=== PATIENT | female | born 1975 | race Caucasian/White ===

== ENCOUNTER 2017-03-13 15:30 | Emergency (ER) | payer OTHER | END 2017-03-13 17:35 | disposition left against medical advice (07) | LOC: JP.ED 15:30 | DX: Z53.21 Procedure and treatment not carried out due to patient leaving prior to being seen by health care provider (principal) ==

== ENCOUNTER 2017-06-27 20:03 | Emergency (ER) | payer OTHER ==
[2017-06-27 20:30] VITALS: BP 139/85
[2017-06-27] MEDS ORDERED: Sodium Chloride 0.9% 10 ML Syringe FLUSH PRN (20:41)
--- NOTE | 2017-06-27 22:56 | EDM.PDOC ---
ED HPI GENERAL MEDICAL PROBLEM - General Chief Complaint: General Stated Complaint: shaking, SWEATING, FELL A FEW DAYS AGO Time Seen by Provider: 06/27/17 20:38 Source of Information: Reports: Family History Limitations: Reports: Physical Impairment - History of Present Illness INITIAL COMMENTS - FREE TEXT/NARRATIVE: This lady was brought in by her . He complains of weight loss and mental status changes. He thinks this is probably due to hypokalemia. This patient's had some very significant problems over the past year and had a big workup through the [facility]. It seems to have happened after the of her father. She had a lot of depression loss of vision and pain in various areas. Nothing was ever found to be wrong. She does have a history of hypokalemia. Her potassium is been down as low as 1.8 recently. Previously she had gotten down below 100 pounds and last week she was up to 113-114 pounds. She had been doing well. 2 nights ago she fell and may have hit her head against some furniture. They have a carpeted floor but it's over the concrete slab. There was no loss of consciousness. Her just sort of found her lying on the floor next to this chair today she fell asleep in a hammock at about 5:30 or 6 PM. He noted that she was sweating all over and shaking. She seemed to be disoriented to time. 2 nights ago she vomited once. He said there is no chance of . Dr. Marte's note from December 09, 2016 was reviewed. - Related Data Allergies Allergy/AdvReac Type Severity Reaction Status Date / Time morphine Allergy Anaphylactic Uncoded 08/24/16 05:27 Shock Home Meds: Home Meds ALPRAZolam [Alprazolam] 0.5 mg PO Q8H PRN 08/24/16 [History] Cholecalciferol (Vitamin D3) [Vitamin D3] 2,000 units PO DAILY 08/24/16 [History ] DULoxetine [Cymbalta] 30 mg PO DAILY 08/24/16 [History] Hydrocodone/Acetaminophen [Hydrocodon-Acetaminophen 5-325] 1 - 2 each PO Q4H PRN #14 tablet 08/24/16 [Rx] Potassium Chloride [Klor-Con M20] 20 meq PO DAILY 08/24/16 [History] Past Medical History HEENT History: Reports: Impaired Vision Genitourinary History: Reports: None 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: Musculoskeletal History: Reports: Fracture Psychiatric History: Reports: Anxiety, Eating Disorders Hematologic History: Reports: Iron Deficiency, Other (See Below) Other Hematologic History: low potassium - Infectious Disease History Infectious Disease History: Reports: Chicken Pox - Past Surgical History HEENT Surgical History: Reports: Oral Surgery, Tonsillectomy Female Surgical History: Reports: Section Social & Family History - Tobacco Use Smoking Status *Q: Heavy Tobacco Smoker Years of Tobacco use: 20 Packs/Tins Daily: 1 - Caffeine Use Caffeine Use: Reports: None - Alcohol Use Days Per Week of Alcohol Use: 1 Number of Drinks Per Day: 1 Total Drinks Per Week: 1 - Recreational Drug Use Recreational Drug Use: No ED ROS GENERAL - Review of Systems Review Of Systems: ROS reveals no pertinent complaints other than HPI. (History of present illness is limited by the patient's mental status) ED EXAM, GENERAL - Physical Exam Exam: See Below Exam Limited By: Altered Mental Status General Appearance: Alert (She seems alert but chronically ill for her age. She' s not in any distress), No Apparent Distress Eye Exam: Bilateral Eye: EOMI, PERRL Nose: Normal Inspection Throat/Mouth: Normal Inspection, Normal Oropharynx Head: Atraumatic Neck: Normal Inspection Respiratory/Chest: Lungs Clear Cardiovascular: Regular Rate, Rhythm GI/Abdominal: Soft, Non-Tender Extremities: Normal Inspection Neurological: Alert (She seems to be alert but slowly responsive as if she is sort of in a dream state. She is oriented to person and she knows she is at the hospital in [place]. When asked about the date she said it was 2000. She was asked more specifically such as what season it was initially she said it was winter and when I question her further about what season it might be she repeatedly said 2000 she also made other statements to her that indicated disorientation.) Psychiatric: Flat Affect Skin Exam: Warm, Dry Course - Vital Signs Last Recorded V/S: Last Vital Signs Temp 36.4 C 06/27/17 20:29 Pulse 93 06/27/17 20:29 Resp 16 06/27/17 20:29 BP 139/85 06/27/17 20:29 Pulse Ox 98 06/27/17 20:29 - Orders/Labs/Meds Orders: Active Orders 24 hr Category Date Time Status Head wo Cont [CT] Stat Exams 06/27/17 21:46 Taken Saline Lock Insert [OM.PC] Urgent Oth 06/27/17 20:41 Ordered Labs: Laboratory Tests 06/27/17 06/27/17 06/27/17 Range/Units 20:52 20:52 22:07 WBC 7.8 (4.5-11.0) K/uL RBC 5.44 (3.30-5.50) M/uL Hgb 11.3 L (12.0-15.0) g/dL Hct 33.7 L (36.0-48.0) % MCV 62 L (80-98) fL MCH 21 L (27-31) pg MCHC 34 (32-36) % Plt Count 265 (150-400) K/uL Neut % (Auto) 54 (36-66) % Lymph % (Auto) 33 (24-44) % [place] % (Auto) 13 H (2-6) % Eos % (Auto) 0 L (2-4) % Baso % (Auto) 1 (0-1) % Sodium 141 (140-148) mmol/L Potassium 4.2 (3.6-5.2) mmol/L Chloride 105 (100-108) mmol/L Carbon Dioxide 22 (21-32) mmol/L Anion Gap 14.1 H (5.0-14.0) mmol/L BUN 9 (7-18) mg/dL Creatinine 0.7 (0.6-1.0) mg/dL Est Cr Clr Drug Dosing 85.58 mL/min Estimated GFR (MDRD) > 60 (>60) Glucose 115 H (74-106) mg/dL Calcium 8.5 (8.5-10.1) mg/dL Total Bilirubin 0.5 (0.2-1.0) mg/dL AST 50 H (15-37) U/L ALT 40 (12-78) U/L Alkaline Phosphatase 103 (46-116) U/L Total Protein 7.4 (6.4-8.2) g/dL Albumin 3.4 (3.4-5.0) g/dL Globulin 4.0 H (2.3-3.5) g/dL Albumin/Globulin Ratio 0.9 L (1.2-2.2) Urine Color Yellow Urine Appearance Clear Urine pH 8.0 (4.5-8.0) Ur Specific [place] 1.015 (1.008-1.030) Urine Protein Negative (NEGATIVE) mg/dL Urine Glucose (UA) Normal (NEGATIVE) mg/dL Urine Ketones Negative (NEGATIVE) mg/dL Urine Occult Blood Negative (NEGATIVE) Urine Nitrite Negative (NEGATIVE) Urine Bilirubin Negative (NEGATIVE) Urine Urobilinogen Normal (NORMAL) mg/dL Ur Leukocyte Esterase Negative (NEGATIVE) Urine RBC 0-5 (0-5) Urine WBC 0-5 (0-5) Ur Epithelial Cells Moderate Amorphous Sediment Not seen Urine Bacteria Moderate Urine Mucus Few Meds: Medications Discontinued Medications Generic Name Dose Route Start Last Admin Trade Name Freq PRN Reason Stop Dose Admin Sodium Chloride 10 ml 06/27/17 20:41 06/27/17 22:02 Saline Flush FLUSH 10 ml ASDIRECTED PRN Administration Keep Vein Open - Radiology Interpretation Free Text/Narrative:: Head CT shows no acute abnormalities - Re-Assessments/Exams Free Text/Narrative Re-Assessment/Exam: 06/28/17 07:00 I explained to her that I don't see any kind of lab abnormalities that would explain the sudden mental status changes. She actually seems like she is in a delirium. I recommended that we transfer her to a facility that had a neurologist and I suggested one of the [facility]. The said they have been down there and then to a complete workup and he thought the best thing was just for her to see her psychologist in a few days. Since this is just a worsening of a chronic problem I felt that her husbands plans are reasonable. He was told that he can return to the ER at any time if needed Departure - Departure Time of Disposition: 22:53 Disposition: Home, Self-Care 01 Condition: Fair Clinical Impression: Mental status change - Discharge Information Instructions: Confusion Referrals: PCP,None [Primary Care Provider] - Forms: ED Department Discharge Additional Instructions: No gross laboratory abnormalities were found. The CT of her head was also normal. None of the tests we did today explain the recent changes in her mental status. Transfer to another hospital where a neurologist could evaluate her would be appropriate however since this is just a worsening of a long-standing problem I don't object to you taking her home and her seeing her primary care provider in a few days. If there are any problems you're welcome to return to the ER at any time. - My Orders Last 24 Hours: My Active Orders 06/27/17 20:41 Saline Lock Insert [OM.PC] Urgent 06/27/17 21:46 Head wo Cont [CT] Stat - Assessment/Plan Last 24 Hours: My Active Orders 06/27/17 20:41 Saline Lock Insert [OM.PC] Urgent 06/27/17 21:46 Head wo Cont [CT] Stat
== END 2017-06-27 23:03 | disposition home or self-care (01) ==
LOC: JP.ED 20:03
DX: R41.82 Altered mental status, unspecified (principal); H54.7 Unspecified visual loss; F41.9 Anxiety disorder, unspecified; Z98.890 Other specified postprocedural states; F17.210 Nicotine dependence, cigarettes, uncomplicated; Z79.899 Other long term (current) drug therapy; Z88.5 Allergy status to narcotic agent
CPT/HCPCS: 36415; 70450; 80053; 81001; 85025; 99285; J7050

== ENCOUNTER 2019-08-05 20:04 | Inpatient (IN) | payer OTHER ==
[2019-08-05] MEDS ORDERED: fentaNYL 100 MCG/2 ML SDV NASBOTH ONE (20:15)
[2019-08-05] MEDS ORDERED: fentaNYL 100 MCG/2 ML SDV ONE (20:17)
[2019-08-05] MEDS ORDERED: fentaNYL 100 MCG/2 ML SDV IVPUSH ONE ×2 (20:17→20:37)
--- NOTE | 2019-08-05 20:20 | EDM.PDOC ---
ED HPI GENERAL MEDICAL PROBLEM - General Chief Complaint: Lower Extremity Injury/Pain Stated Complaint: ANKLE INJURY Time Seen by Provider: 08/05/19 20:11 Source of Information: Reports: Patient, Family, RN Notes Reviewed History Limitations: Reports: No Limitations - History of Present Illness INITIAL COMMENTS - FREE TEXT/NARRATIVE: 44-year-old female presents emergency department today with a deformity in her left ankle unfortunately she tripped at home ended up twisting her ankle now is unable to walk has obvious deformity and is in severe pain Left Lower Ankle Pain Score (Numeric/FACES): 10 - Related Data Allergies Allergy/AdvReac Type Severity Reaction Status Date / Time morphine Allergy Anaphylactic Uncoded 08/24/16 05:27 Shock Home Meds: Home Meds ALPRAZolam [Alprazolam] 0.5 mg PO Q8H PRN 08/24/16 [History] Cholecalciferol (Vitamin D3) [Vitamin D3] 2,000 units PO DAILY 08/24/16 [History ] DULoxetine [Cymbalta] 30 mg PO DAILY 08/24/16 [History] Hydrocodone/Acetaminophen [Hydrocodon-Acetaminophen 5-325] 1 - 2 each PO Q4H PRN #14 tablet 08/24/16 [Rx] Potassium Chloride [Klor-Con M20] 20 meq PO DAILY 08/24/16 [History] Past Medical History HEENT History: Reports: Impaired Vision 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: Musculoskeletal History: Reports: Fracture Psychiatric History: Reports: Anxiety, Eating Disorders Hematologic History: Reports: Iron Deficiency, Other (See Below) Other Hematologic History: low potassium - Infectious Disease History Infectious Disease History: Reports: Chicken Pox - Past Surgical History HEENT Surgical History: Reports: Oral Surgery, Tonsillectomy Female Surgical History: Reports: Section Social & Family History - Caffeine Use Caffeine Use: Reports: None Review of Systems - Review of Systems Review Of Systems: See Below Musculoskeletal: Reports: Joint Pain (Left ankle pain) Skin: Reports: Bruising Neurological: Reports: Numbness, Tingling ED EXAM, GENERAL - Physical Exam Exam: See Below Free Text/Narrative:: Examination left ankle there is obvious deformity she does have edema there is bruising around the left ankle pedal pulses +1 sensation is intact Limited range of motion of the digits secondary to pain ED TRAUMA EXTREMITY PROCEDURES - Joint Reduction Site: Other (Left ankle) Sedation: Conscious Sedation Pre-Procedure NV Status: Normal Post-Procedure NV Status: Normal Technique: Traction/Counter Traction Number of Attempts: 1 Post-Reduction Imaging: Acceptably Reduced Joint Reduction Complications: No Joint Reduction Complication Description: Fluoroscopy anesthesia by Watson Rasmussen see his note for details Course - Vital Signs Last Recorded V/S: Last Vital Signs Temp 96.2 F 08/05/19 20:14 Pulse 119 H 08/05/19 20:14 Resp 18 08/05/19 20:14 BP 123/87 08/05/19 20:14 Pulse Ox 99 08/05/19 20:14 - Orders/Labs/Meds Orders: Active Orders 24 hr Category Date Time Status Fluoro Up To 1Hr [CR] Stat Exams 08/05/19 21:02 Ordered Sodium Chloride 0.9% [Normal Saline] 1,000 ml Med 08/05/19 20:30 Active IV ASDIRECTED Medication Orders Sodium Chloride (Normal Saline) 1,000 mls @ 125 mls/hr IV ASDIRECTED VIVIENNE Last Admin: 08/05/19 20:40 Dose: 125 mls/hr Meds: Medications Generic Name Dose Route Start Last Admin Trade Name Freq PRN Reason Stop Dose Admin Sodium Chloride 1,000 mls @ 125 mls/hr 08/05/19 20:30 08/05/19 20:40 Normal Saline IV 125 mls/hr ASDIRECTED VIVIENNE Administration Discontinued Medications Generic Name Dose Route Start Last Admin Trade Name Freq PRN Reason Stop Dose Admin Fentanyl 50 mcg 08/05/19 20:15 Sublimaze NASBOTH 08/05/19 20:16 ONETIME ONE Fentanyl 50 mcg 08/05/19 20:17 08/05/19 20:19 Sublimaze IVPUSH 08/05/19 20:18 50 mcg ONETIME ONE Administration Fentanyl Confirm 08/05/19 20:17 08/05/19 20:21 Sublimaze Administered 08/05/19 20:18 Not Given Dose 100 mcg .ROUTE .STK-MED ONE Fentanyl 50 mcg 08/05/19 20:37 08/05/19 20:45 Sublimaze IVPUSH 08/05/19 20:38 50 mcg ONETIME ONE Administration - Re-Assessments/Exams Free Text/Narrative Re-Assessment/Exam: 08/05/19 20:50 Called discussed case with Dr[address] Aguilar orthopedic surgeon at 2039 who reviewed the films recommend reduction posterior splint admission plan for surgical intervention in the morning Departure - Departure Time of Disposition: 21:24 Disposition: Admitted As Inpatient 66 Condition: Fair Clinical Impression: Ankle fracture Ankle fracture Qualifiers: Encounter type: initial encounter Fracture type: closed Laterality: left Qualified Code(s): S82.892A - Other fracture of left lower leg, initial encounter for closed fracture - Discharge Information Referrals: [facility] UI SOFTWARE DEVELOPER [Primary Care Provider] - Forms: ED Department Discharge - My Orders Last 24 Hours: My Active Orders 08/05/19 20:30 Sodium Chloride 0.9% [Normal Saline] 1,000 ml IV ASDIRECTED 08/05/19 21:02 Fluoro Up To 1Hr [CR] Stat - Assessment/Plan Last 24 Hours: My Active Orders 08/05/19 20:30 Sodium Chloride 0.9% [Normal Saline] 1,000 ml IV ASDIRECTED 08/05/19 21:02 Fluoro Up To 1Hr [CR] Stat Plan: Assessment Acuity = acute Site and laterality = left ankle fracture with dose location status post reduction Etiology = secondary to trauma Manifestations = pain Location of injury = Home Lab values = initial x-rays describe fracture above reduction done under fluoroscopy Plan Plan to admit the patient to Dr. Aguilar's service This note was dictated using [employer] voice recognition software please call with any questions on syntax or grammar.
[2019-08-05] MEDS ORDERED: Sodium Chloride 0.9% 1,000 ML IV SCH (20:30)
--- NOTE | 2019-08-05 20:50 | CRLCR ---
INDICATION: Twisting injury. Pain. TECHNIQUE: Two portable views of the left ankle. FINDINGS: Fracture dislocation of left ankle. Specifically there is an acute complete angulated overriding fracture of the distal fibula, acute complete displaced transversely oriented fracture of the medial malleolus. Fracture of the posterior malleolus. Anteromedial disruption of the tibiotalar joint space with significant soft tissue swelling. IMPRESSION: Complex trimalleolar fracture dislocation of the left ankle. Orthopedic consultation is warranted. Dictated by Jarrett Sanders MD @ Aug 05 2019 8:48PM Signed by Dr. Jarrett Sanders @ Aug 05 2019 8:49PM
[2019-08-05] MEDS ORDERED: Propofol 200 MG/20 ML SDV ONE (21:24)
[2019-08-05] MEDS ORDERED: Acetaminophen 325 MG Tab PO PRN (22:40)
[2019-08-05] MEDS ORDERED: LORazepam 2 MG/ML SDV IV PRN (22:40)
[2019-08-05] MEDS ORDERED: Ondansetron 4 MG Tab.DIS PO PRN (22:40)
[2019-08-05] MEDS ORDERED: Albuterol 0.083% 2.5 MG/3 ML Neb Soln NEB PRN (22:40)
[2019-08-05] MEDS ORDERED: Ondansetron 4 MG/2 ML SDV IV PRN (22:40)
--- NOTE | 2019-08-05 22:41 | PCM.HP.2 ---
H&P History of Present Illness - General Date of Service: 08/05/19 Admit Problem/Dx: Admission Diagnosis/Problem Admission Diagnosis/Problem Ankle fracture Source of Information: Patient History Limitations: Reports: Intoxication - History of Present Illness Initial Comments - Free Text/Narative: chief complaint: left fracture ankle This is 44 year old female who is pleasantly intoxicated, reports has been sober for 13 months but today "relapsed" due to family stressors. She ate supper about 6:30pm, then drank unknown amount of alcohol, at least 4 or 5 drinks or more, not sure. She then tripped over a humidifier and had immediate pain and deformity of the left ankle. Her who was also intoxicated help assist her to the vehicle. The 18 year old daughter transported to ER for care. In ER, Radiologist report: complex trimalleolar fracture dislocation of the left ankle. Dr. Sanderson reduced left ankle fracture/dislocation under fluoroscopy. Consult to Dr. Aguilar, Orthopedic Surgeon, with planned surgery in am to repair left ankle fracture. Onset of Symptoms: Reports: Sudden Duration of Symptoms: Reports: Hour(s): Location: Reports: Lower Extremity, Left Quality: Reports: Sharp, Stabbing, Throbbing Severity: Severe Improves with: Reports: Immobilization Worsens with: Reports: Movement Context: Reports: Trauma (fall at home) Associated Symptoms: Reports: Other (intoxication) Left Lower Ankle Pain Score (Numeric/FACES): 10 - Related Data Allergies/Adverse Reactions: Allergies Allergy/AdvReac Type Severity Reaction Status Date / Time morphine Allergy Anaphylactic Uncoded 08/24/16 05:27 Shock Home Medications: Home Meds DULoxetine [Cymbalta] 60 mg PO ACBREAKFAST 08/24/16 [History] DULoxetine [Cymbalta] 30 mg PO BEDTIME 08/05/19 [History] Gabapentin [Neurontin] 600 mg PO TID 08/05/19 [History] Methocarbamol [Robaxin] 500 mg PO TID 08/05/19 [History] lamoTRIgine [Lamotrigine] 25 mg PO DAILY 08/05/19 [History] traZODone 200 mg PO BEDTIME 08/05/19 [History] Past Medical History HEENT History: Reports: Impaired Vision 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: Musculoskeletal History: Reports: Fracture Psychiatric History: Reports: Anxiety, Eating Disorders Hematologic History: Reports: Iron Deficiency, Other (See Below) Other Hematologic History: low potassium - Infectious Disease History Infectious Disease History: Reports: Chicken Pox - Past Surgical History HEENT Surgical History: Reports: Oral Surgery, Tonsillectomy Female Surgical History: Reports: Section Social & Family History - Tobacco Use Smoking Status *Q: Heavy Tobacco Smoker Years of Tobacco use: 20 Packs/Tins Daily: 1 - Caffeine Use Caffeine Use: Reports: None - Living Situation & Occupation Living situation: Reports: Occupation: Employed (lives with and Daughter in [place], [place]. 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 has two daughters age 20 yrs and 18 yrs.) H&P Review of Systems - Review of Systems: Review Of Systems: See Below General: Reports: Other (left ankle pain and intoxication) HEENT: Reports: Glasses Pulmonary: Reports: Other (smokes one pack of cigarettes per day) Cardiovascular: Reports: No Symptoms Gastrointestinal: Reports: No Symptoms Genitourinary: Reports: No Symptoms, Other (report has IUD in place) Musculoskeletal: Reports: Joint Pain (left ankle) Skin: Reports: No Symptoms Psychiatric: Reports: No Symptoms Neurological: Reports: No Symptoms Hematologic/Lymphatic: Reports: No Symptoms Immunologic: Reports: No Symptoms Exam - Exam Exam: See Below - Vital Signs Vital Signs: Last Vital Signs Temp 35.7 C 08/05/19 20:14 Pulse 119 H 08/05/19 20:14 Resp 18 08/05/19 20:14 BP 123/87 08/05/19 20:14 Pulse Ox 99 08/05/19 20:14 Weight: 63.503 kg - Exam General: Alert, Oriented, Cooperative, Sedated HEENT: PERRLA, Conjunctiva Clear, EACs Clear, EOMI, Hearing Intact, Mucosa Moist & [place], Nares Patent Neck: Supple, Trachea Midline Lungs: Clear to Auscultation, Normal Respiratory Effort Cardiovascular: Regular Rate, Regular Rhythm, Normal S1, Normal S2 GI/Abdominal Exam: Normal Bowel Sounds, Soft, Non-Tender, No Organomegaly (Female) Exam: Deferred Rectal (Female) Exam: Deferred Back Exam: Normal Inspection, Full Range of Motion Extremities: Other (left lower leg in splint. toe with +CMS) Peripheral Pulses: 2+: Radial (R), Femoral (L), Dorsalis Pedis (L) Skin: Warm, Dry, Intact Neurological: Normal Speech, Normal Tone Neuro Extensive - Mental Status: Alert, Oriented x3, Normal Mood/Affect, Normal Cognition Psychiatric: Alert, Normal Affect, Normal Mood - Problem List (1) Ankle fracture SNOMED Code(s): 42296602 ICD Code: S82.899A - OTH FRACTURE OF UNSP LOWER LEG, INIT FOR CLOS FX Status: Acute Priority: High Current Visit: Yes Qualifiers: Encounter type: initial encounter Fracture type: closed Laterality: left Qualified Code(s): S82.892A - Other fracture of left lower leg, initial encounter for closed fracture (2) Alcohol abuse, episodic Status: Acute Priority: High Current Visit: Yes (3) Tobacco dependence due to cigarettes SNOMED Code(s): 82090092879631647 ICD Code: F17.210 - NICOTINE DEPENDENCE, CIGARETTES, UNCOMPLICATED Status: Acute Priority: High Current Visit: Yes Problem List Initiated/Reviewed/Updated: Yes Orders Last 24hrs: Active Orders 24 hr Category Date Time Status Patient Status Manage Transfer [TRANSFER] Routine ADT 08/05/19 22:21 Ordered Fluoro Up To 1Hr [CR] Stat Exams 08/05/19 20:18 Taken Sodium Chloride 0.9% [Normal Saline] 1,000 ml Med 08/05/19 20:30 Active IV ASDIRECTED Resuscitation Status Routine Resus Stat 08/05/19 22:23 Ordered Medication Orders Sodium Chloride (Normal Saline) 1,000 mls @ 125 mls/hr IV ASDIRECTED VIVIENNE Last Admin: 08/05/19 20:40 Dose: 125 mls/hr Assessment/Plan Comment:: chief complaint: left fracture ankle This is 44 year old female who is pleasantly intoxicated, reports has been sober for 13 months but today "relapsed" due to family stressors. She ate supper about 6:30pm, then drank unknown amount of alcohol, at least 4 or 5 drinks or more, not sure. She then tripped over a humidifier and had immediate pain and deformity of the left ankle. Her who was also intoxicated help assist her to the vehicle. The 18 year old daughter transported to ER for care. In ER, Radiologist report: complex trimalleolar fracture dislocation of the left ankle. Officer reduced left ankle fracture/dislocation under fluoroscopy. Consult to Dr. Aguilar, Orthopedic Surgeon, with planned surgery in am to repair left ankle fracture. LEFT ANKLE FRACTURE WITH POST REDUCTION -Iv fluids Normal Saline at 125ml/hr -pain medications ordered. -NPO after midnight for surgery in am. -labs pending: CBC, BMP,ETOH level. Alcohol abuse - relapsed today -Chemical Dependency counselor - meets weekly Tobacco use - reports smokes one pack or more of cigarettes -Nicotine patch 21 mg daily, start tonight Maintenance issues -Orders home meds: on hold -Nutrition: NPO then per post surgery orders. -Kraus catheter not indicated at this time -DVT:hold, surgery in am -GI Prophalaxis; Protonix 40mg daily -referral Spiritual CODE STATUS: Full Admission status: Admit to hospital Admission justification. This patient will be admitted for inpatient services and is medically appropriate meeting medical necessity for inpatient admission as outlined in my documentation. I reasonably expect the patient will require inpatient services that span. Time over 2 midnights. I reasonably expect this patient to be discharged or transferred within 96 hours after admission to the critical access hospital. Disposition: home Primary care provider: Kishor Meredith [facility] Hospitalist: Dr. Baxter Surgeon: Dr. Aguilar, Orthopedic - Mortality Measure Prognosis:: Good
[2019-08-06] MEDS: oxyCODONE 5 MG Tab PO PRN ×4 (00:24→23:44)
[2019-08-06] MEDS: Nicotine 21 MG/24 Hr Patch TRDERM SCH ×2 (00:25→09:52)
[2019-08-06] MEDS ORDERED: Gabapentin 300 MG Cap PO ONE (00:27)
[2019-08-06] MEDS ORDERED: DULoxetine 30 MG Cap PO ONE (00:27)
[2019-08-06] MEDS: Pantoprazole 40 MG Vial IVPUSH SCH ×2 (00:27→09:52)
[2019-08-06] MEDS: HYDROmorphone 1 MG/ML Syringe IVPUSH PRN ×5 (02:10→16:26)
[2019-08-06] MEDS: Sodium Chloride 0.9% 1,000 ML IV SCH ×2 (03:33→23:43)
[2019-08-06] MEDS ORDERED: Bupivacaine 0.5% 30 ML SDV ONE (07:09)
[2019-08-06] MEDS: lamoTRIgine 25 MG Tab PO SCH (09:52)
[2019-08-06] MEDS ORDERED: FLU Vacc QS2019-20(6MOS+)/PF 60 MCG/0.5 ML SYRINGE IM ONE (10:00)
[2019-08-06] MEDS ORDERED: ceFAZolin 2 GM in Sodium Chloride 0.9% 50 ML IV ONE ×2 (10:00→16:45)
[2019-08-06] MEDS ORDERED: LORazepam 1 MG Tab PO ONE (10:59)
--- NOTE | 2019-08-06 12:48 | PCM.PN ---
- General Info Date of Service: 08/06/19 Subjective Update: No acute events overnight. Pain moderately well controlled. Patient is anxious. No complaints of shortness of breath or abdominal pain or nausea. Surgery planned later in the day. Functional Status: Reports: Pain Controlled - Review of Systems Musculoskeletal: Reports: Joint Pain (left ankle) - Patient Data Vitals - Most Recent: Last Vital Signs Temp 37.1 C 08/06/19 12:01 Pulse 119 H 08/06/19 12:01 Resp 16 08/06/19 12:01 BP 138/77 08/06/19 12:01 Pulse Ox 94 L 08/06/19 12:01 Weight - Most Recent: 65.459 kg I&O - Last 24 Hours: Intake & Output 08/05/19 08/06/19 08/06/19 22:59 06:59 14:59 Intake Total 1462 Balance 1462 Lab Results Last 24 Hours: Laboratory Results - last 24 hr 08/05/19 08/05/19 08/05/19 Range/Units 22:55 22:55 22:55 WBC 13.4 H (4.5-11.0) K/uL RBC 5.71 H (3.30-5.50) M/uL Hgb 12.4 (12.0-15.0) g/dL Hct 37.8 (36.0-48.0) % MCV 66 L (80-98) fL MCH 22 L (27-31) pg MCHC 33 (32-36) % Plt Count 292 (150-400) K/uL Neut % (Auto) 80 H (36-66) % Lymph % (Auto) 14 L (24-44) % Brooks % (Auto) 5 (2-6) % Eos % (Auto) 0 L (2-4) % Baso % (Auto) 0 (0-1) % Sodium 139 L (140-148) mmol/L Potassium 3.5 L (3.6-5.2) mmol/L Chloride 100 (100-108) mmol/L Carbon Dioxide 23 (21-32) mmol/L Anion Gap 19.5 H (5.0-14.0) mmol/L BUN 11 (7-18) mg/dL Creatinine 0.6 (0.6-1.0) mg/dL Est Cr Clr Drug Dosing 104.40 mL/min Estimated GFR (MDRD) > 60 (>60) Glucose 123 H (74-106) mg/dL Calcium 8.0 L (8.5-10.1) mg/dL Total Bilirubin 0.6 (0.2-1.0) mg/dL AST 35 (15-37) U/L ALT 30 (12-78) U/L Alkaline Phosphatase 80 (46-116) U/L Total Protein 6.9 (6.4-8.2) g/dL Albumin 4.0 (3.4-5.0) g/dL Globulin 2.9 (2.3-3.5) g/dL Albumin/Globulin Ratio 1.4 (1.2-2.2) Ethyl Alcohol 294 mg/dL Med Orders - Current: Current Medications Acetaminophen (Tylenol) 650 mg PO Q4H PRN PRN Reason: Pain (Mild 1-3)/fever Albuterol (Proventil Neb Soln) 2.5 mg NEB Q4H PRN PRN Reason: Shortness Of Breath/wheezing Hydromorphone HCl (Dilaudid) 1 mg IVPUSH Q2H PRN PRN Reason: Pain Last Admin: 08/06/19 10:38 Dose: 1 mg Sodium Chloride (Normal Saline) 1,000 mls @ 125 mls/hr IV ASDIRECTED [facility] Last Admin: 08/06/19 03:33 Dose: 125 mls/hr Lamotrigine (Lamotrigine) 25 mg PO DAILY [facility] Last Admin: 08/06/19 09:52 Dose: 25 mg Lorazepam (Ativan) 1 mg IV Q6H PRN PRN Reason: Nausea/Vomiting Nicotine (Habitrol) 21 mg TRDERM DAILY [facility] Last Admin: 08/06/19 09:52 Dose: 21 mg Ondansetron HCl (Zofran Odt) 4 mg PO Q6H PRN PRN Reason: Nausea able to take PO Ondansetron HCl (Zofran) 4 mg IV Q4H PRN PRN Reason: Nausea/Vomiting Oxycodone HCl (Oxycodone) 5 mg PO Q4H PRN PRN Reason: Pain (moderate 4-6) Last Admin: 08/06/19 05:31 Dose: 5 mg Pantoprazole Sodium (Protonix Iv) 40 mg IVPUSH DAILY [facility] Last Admin: 08/06/19 09:52 Dose: 40 mg Discontinued Medications Bupivacaine HCl (Marcaine 0.5%) Confirm Administered Dose 30 ml .ROUTE .STK-MED ONE Stop: 08/06/19 07:10 Duloxetine HCl (Cymbalta) 30 mg PO ONETIME ONE Stop: 08/06/19 00:28 Last Admin: 08/06/19 00:41 Dose: 30 mg Fentanyl (Sublimaze) 50 mcg NASBOTH ONETIME ONE Stop: 08/05/19 20:16 Last Admin: 08/06/19 01:05 Dose: Not Given Fentanyl (Sublimaze) 50 mcg IVPUSH ONETIME ONE Stop: 08/05/19 20:18 Last Admin: 08/05/19 20:19 Dose: 50 mcg Fentanyl (Sublimaze) Confirm Administered Dose 100 mcg .ROUTE .STK-MED ONE Stop: 08/05/19 20:18 Last Admin: 08/05/19 20:21 Dose: Not Given Fentanyl (Sublimaze) 50 mcg IVPUSH ONETIME ONE Stop: 08/05/19 20:38 Last Admin: 08/05/19 20:45 Dose: 50 mcg Gabapentin (Neurontin) 600 mg PO ONETIME ONE Stop: 08/06/19 00:28 Last Admin: 08/06/19 00:41 Dose: 600 mg Sodium Chloride (Normal Saline) 1,000 mls @ 125 mls/hr IV ASDIRECTED [facility] Last Admin: 08/05/19 20:40 Dose: 125 mls/hr Cefazolin Sodium 2 gm/ Sodium (Chloride) 50 mls @ 100 mls/hr IV ONCALL ONE Stop: 08/06/19 10:29 Last Admin: 08/06/19 09:52 Dose: 100 mls/hr Influenza Virus Vaccine (Pharmacy To Dose - Influenza Vaccine) 1 each IM ONETIME ONE Stop: 08/06/19 10:01 Influenza Virus Vaccine (Fluzone Quad [id number] Syringe) 60 mcg IM .ONCE ONE Stop: 08/06/19 10:01 Last Admin: 08/06/19 10:00 Dose: 60 mcg Lorazepam (Ativan) 1 mg PO ONETIME ONE Stop: 08/06/19 11:00 Last Admin: 08/06/19 11:03 Dose: 1 mg Propofol (Diprivan 20 Ml) Confirm Administered Dose 200 mg .ROUTE .STK-MED ONE Stop: 08/05/19 21:25 - Exam Quality Assessment: No: Supplemental Oxygen General: Alert, Oriented, Cooperative, No Acute Distress Lungs: Normal Respiratory Effort GI/Abdominal Exam: Soft, No Distention Extremities: No Pedal Edema, Other (left ankle with splint and secured with KIA wrap ) Skin: Warm, Dry Psy/Mental Status: Alert, Anxious - Problem List Review Problem List Initiated/Reviewed/Updated: Yes - Plan Plan:: ASSESSMENT AND PLAN - Complicated trimalleolar fracture of the left ankle - status post reduction and splinting in the emergency room. Pain moderately well controlled. Surgical intervention planned today. -Iv fluids Normal Saline at 125ml/hr -pain control -NPO status -Surgical intervention later today with Dr. Aguilar Alcohol abuse - recent heavy use after a period of sobriety. No strong evidence to support alcohol withdrawal at this time. -CIWAA Tobacco dependence - reports smoking one pack or more of cigarettes per day. -Nicotine patch 21 mg daily Maintenance issues -Nutrition - NPO -Kraus catheter - not indicated at this time -DVT - hold, surgery in am -GI Prophalaxis; Protonix 40mg daily Disposition - I would anticipate discharge home after the surgery Primary care provider: [place], [facility] Osbaldo Baxter M.D.
[2019-08-06] MEDS ORDERED: fentaNYL 250 MCG/5 ML SDV ONE ×2 (16:35→16:59)
[2019-08-06] MEDS ORDERED: Succinylcholine 200 MG/10 ML MDV ONE (16:36)
[2019-08-06] MEDS ORDERED: Glycopyrrolate 0.2 MG/ML 5 ML MDV ONE (16:36)
[2019-08-06] MEDS ORDERED: Neostigmine Methylsulfate 1 MG/ML 5 ML Syringe ONE (16:36)
[2019-08-06] MEDS ORDERED: Ondansetron 4 MG/2 ML SDV ONE (16:36)
[2019-08-06] MEDS ORDERED: Dexamethasone 4 MG/ML SDV ONE (16:36)
[2019-08-06] MEDS ORDERED: Rocuronium 50 MG/5 ML Vial ONE (16:36)
[2019-08-06] MEDS ORDERED: Propofol 200 MG/20 ML SDV ONE (16:36)
[2019-08-06] MEDS ORDERED: Labetalol 20 MG/4 ML Syringe ONE (17:10)
[2019-08-06] MEDS ORDERED: Lactated Ringers 1,000 ML ONE (17:22)
[2019-08-06] MEDS ORDERED: DULoxetine 30 MG Cap PO SCH (21:00)
[2019-08-06] MEDS: Methocarbamol 500 MG Tab PO SCH (21:12)
[2019-08-06] MEDS: Gabapentin 300 MG Cap PO SCH (21:16)
[2019-08-06] MEDS: Ketorolac 30 MG/ML SDV IVPUSH PRN (22:27)
[2019-08-07] MEDS: HYDROmorphone 1 MG/ML Syringe IVPUSH PRN (01:45)
[2019-08-07] MEDS: oxyCODONE 5 MG Tab PO PRN ×2 (04:59→09:48)
[2019-08-07] MEDS ORDERED: DULoxetine 30 MG Cap PO SCH (07:30)
[2019-08-07 07:45] VITALS: BP 124/63; PULSE 105
[2019-08-07] MEDS: Sodium Chloride 0.9% 1,000 ML IV SCH (07:58)
[2019-08-07] MEDS: Ketorolac 30 MG/ML SDV IVPUSH PRN (07:59)
[2019-08-07] MEDS: Gabapentin 300 MG Cap PO SCH (08:04)
[2019-08-07] MEDS: Nicotine 21 MG/24 Hr Patch TRDERM SCH (08:05)
[2019-08-07] MEDS: lamoTRIgine 25 MG Tab PO SCH (08:05)
[2019-08-07] MEDS: Methocarbamol 500 MG Tab PO SCH (08:05)
[2019-08-07] MEDS: Pantoprazole 40 MG Vial IVPUSH SCH (08:07)
--- NOTE | 2019-08-07 08:31 | CRLCR ---
INDICATION: ORIF OF DISTAL LEFT ANKLE FRACTURE HISTORY: Fracture dislocation of the left ankle. COMPARISON: Left ankle, 2 views 08/05/2019, 2028 hours. TECHNIQUE: Left ankle, 2 intraoperative views. FINDINGS: Images demonstrate reduction of the fracture dislocation of the left tibiotalar joint. Intraosseous screw securing the medial malleolus, with plate and screw fixation of the left distal fibula. Talar dome is intact. IMPRESSION: Intraoperative imaging guidance provided during ORIF of a fracture dislocation of the left tibiotalar joint. Dictated by Sukhwinder Joshi MD @ 08/07/2019 8:29:19 AM Dictated by: Sukhwinder Joshi MD @ 08/07/2019 08:29:26 (Electronically Signed)
--- NOTE | 2019-08-20 07:52 | OR ---
DATE OF PROCEDURE: 08/06/2019 SURGEON: Gino Aguilar MD PREOPERATIVE DIAGNOSIS: Bimalleolar fracture dislocation, left ankle. POSTOPERATIVE DIAGNOSIS: Bimalleolar fracture dislocation, left ankle. PROCEDURE: Open reduction and internal fixation, left ankle. ANESTHESIA: General. INDICATIONS: Ms. Fly Pak is a 44-year-old female who presented to the emergency room last night with obvious deformity of the left ankle. She was found to have a bimalleolar fracture with dislocation. She underwent reduction in the emergency room and splinting. As the patient had eaten relatively recently and had alcohol on board, she was admitted overnight for further definitive treatment the next day. She now presents to the operating room for open reduction and internal fixation of the ankle. Risks, benefits, and potential complications of the procedure were discussed with the patient. DESCRIPTION OF PROCEDURE: After adequate anesthesia was obtained, the patient was positioned with a tourniquet about the left upper thigh. Left leg was prepped and draped in a sterile fashion. Leg was exsanguinated and tourniquet inflated to 300 mmHg. A longitudinal incision was made over the lateral ankle and carried down through the subcutaneous tissues. This was carried down to the subcutaneous border of the fibula. Fibular fracture was identified. Soft tissues were cleared from the fracture, and a bone- holding forceps was used to hold the fracture in reduced position. A Synthes contoured fibular plate was then utilized. This was secured to the fibula using combination of locked screws distally and 3.5 cortical screws proximally in compression. Position of the reduction and hardware was confirmed using fluoroscopy. Attention was then turned to the medial ankle. A curvilinear incision was made over the medial malleolus. This was carried down through the subcutaneous tissues and the medial malleolar fragment was exposed. Flap of periosteum was removed from the fracture site and the fracture was then held in a reduced position with a tenaculum clamp. It was drilled with a 2.5 drill bit, and a 4.0 mm partially-threaded cancellous screw was then placed with good compression across the fracture. Final position was confirmed using fluoroscopy; AP, lateral, mortise views. Both incisions were then irrigated. Medial incision was closed with the addition of a 0 Vicryl in a [id number] fashion over the fracture site, securing the periosteal flap in position over the fracture. The lateral incision was closed with 0 Vicryl, deep 2-0 Vicryl and a running 3-0 Monocryl. Medial incision was closed in a similar fashion. Steri-Strips were applied. A padded AO plaster splint was then placed with the ankle in neutral position. The patient tolerated the procedure well. There were no complications, taken from the operating room in stable condition. Gino Aguilar MD /[id number]
== END 2019-08-07 14:00 | disposition home or self-care (01) | DRG 494 ==
LOC: JP.ED 20:04 → JP.MS 22:21
PROVIDERS: ADMIT Internal Medicine; ATTEND Specialist
PROC: 0QSK04Z Reposition Left Fibula with Internal Fixation Device, Open Approach (ICD-10-PCS; principal; 2019-08-06)
PROC: 3E02340 Introduction of Influenza Vaccine into Muscle, Percutaneous Approach (ICD-10-PCS; 2019-08-06)
DX: S82.852A Displaced trimalleolar fracture of left lower leg, initial encounter for closed fracture (principal); F10.129 Alcohol abuse with intoxication, unspecified; F17.210 Nicotine dependence, cigarettes, uncomplicated; F41.9 Anxiety disorder, unspecified; Z88.5 Allergy status to narcotic agent; Z90.89 Acquired absence of other organs; Z23 Encounter for immunization; W01.10XA Fall on same level from slipping, tripping and stumbling with subsequent striking against unspecified object, initial encounter; Y92.009 Unspecified place in unspecified non-institutional (private) residence as the place of occurrence of the external cause
CPT/HCPCS: 36415; 73600-LT; 76000; 80053; 85025; 90686; 94762; 97162-GP; 97530-GP; 97535-GP; A9270-GY; C1713; C9113; G0008; G0480; J0330; J0690; J1100; J1170; J1885; J2405; J2704; J2710; J3010; J3490; J7030; J7050; J7120

== ENCOUNTER 2021-08-16 05:52 | Day surgery (SDC) | payer OTHER ==
[2021-08-16] MEDS ORDERED: Bupivacaine 0.5% 50 ML MDV ONE (06:35)
[2021-08-16] MEDS ORDERED: Nozin Nasal Sanitizer NASBOTH ONE (06:58)
[2021-08-16] MEDS ORDERED: Lactated Ringers 1,000 ML IV SCH (07:00)
[2021-08-16] MEDS ORDERED: fentaNYL 100 MCG/2 ML SDV ONE ×3 (07:18→08:26)
[2021-08-16] MEDS ORDERED: Midazolam 1 MG/ML 2 ML SDV ONE (07:19)
[2021-08-16] MEDS ORDERED: Ondansetron 4 MG/2 ML SDV ONE (07:19)
[2021-08-16] MEDS ORDERED: Propofol 200 MG/20 ML SDV ONE (07:19)
[2021-08-16] MEDS ORDERED: Dexamethasone 4 MG/ML SDV ONE (07:19)
[2021-08-16] MEDS ORDERED: ceFAZolin 1 GM in Premix Bag 1 BAG IV ONE (07:45)
[2021-08-16] MEDS ORDERED: Ketorolac 30 MG/ML SDV ONE (08:06)
[2021-08-16 09:58] VITALS: BP 144/70; PULSE 79
[2021-08-16] MEDS ORDERED: traMADol 50 MG Tab PO SCH (10:00)
--- NOTE | 2021-08-18 15:19 | OR ---
DATE OF PROCEDURE: 08/16/2021 SURGEON: Gino Aguilar MD PREOPERATIVE DIAGNOSIS: Retained painful hardware, left ankle. POSTOPERATIVE DIAGNOSIS: Retained painful hardware, left ankle. PROCEDURE PERFORMED: Removal of hardware, left ankle, including medial malleolar screw and distal fibular plate and screws. DIGITAL MEDIA REPRESENTATIVE: FLAQUITO Muñoz ANESTHESIA: General. INDICATIONS: Santa is a 46-year-old female who sustained a left ankle fracture dislocation in 2019 and underwent open reduction and internal fixation. She has noticed progressively prominent screw head distal to the medial malleolus. She also has some intermittent swelling of the ankle itself with milder lateral ankle pain. X-rays reveal the medial malleolar screw to have backed out nearly 1 cm and is readily visible beneath the skin medially. There is mild tenderness over the end of the plate distally on the fibula. Risks, benefits, and potential complications were discussed. DESCRIPTION OF PROCEDURE: After adequate anesthesia was obtained, the patient was placed supine with a tourniquet about the upper calf. The left foot and ankle were prepped and draped in a sterile fashion. A small incision was made over the screw head medially. A small thickened bursa over the screw head was incised, and the screw was then removed without difficulty. Attention was turned to the lateral ankle where the previous incision was utilized. This was carried down through the subcutaneous tissue to the plate. The scar tissue over the plate was incised, exposing the plate and screws. Proximal cortical screws were removed without difficulty. Two of the distal locking screws were removed. The final locking screw had fractured at the level of the attachment of the threaded head. The screw head was removed from the plate. The plate was then removed from the lateral fibula. The broken portion of the screw was slightly prominent. Scar tissue was cleared from around the base and a small curette used to remove just enough bone to allow the broken portion of the screw to be grasped with a needle set key driver. The screw was then removed without difficulty. All rough edges were smoothed over with a rongeur. The wounds were irrigated. The medial incision was closed with 3-0 Monocryl subcuticular stitch. The lateral incision was closed with 0 Vicryl in the fascia layer, 2-0 Vicryl and a running 3-0 Monocryl. Steri-Strips were applied. The incisions were infiltrated with Marcaine, and a sterile dressing was applied. The patient tolerated the procedure very well. There were no complications. She was taken from the operating room in stable condition. Gino Aguilar MD /[id number]
== END 2021-08-16 10:10 | disposition home or self-care (01) ==
LOC: JP.SDS 05:52
PROVIDERS: ATTEND Specialist
DX: T84.84XA Pain due to internal orthopedic prosthetic devices, implants and grafts, initial encounter (principal); G62.9 Polyneuropathy, unspecified; F17.210 Nicotine dependence, cigarettes, uncomplicated; Z98.890 Other specified postprocedural states; Z88.5 Allergy status to narcotic agent
CPT/HCPCS: 36415; 80048; 84703; 85027; A9270-GY; J0690; J1100; J1885; J2250; J2405; J2704; J3010; J3490; J7120

== ENCOUNTER 2024-07-25 14:29 | Emergency (ER) | payer OTHER ==
[2024-07-25 15:12] VITALS: BP 134/96; PULSE 135
[2024-07-25] MEDS ORDERED: Sodium Chloride 0.9% 10 ML Syringe FLUSH PRN (15:58)
[2024-07-25] MEDS: Ondansetron 4 MG/2 ML SDV IVPUSH ONE (16:07)
[2024-07-25] MEDS: Sodium Chloride 0.9% 1,000 ML IV ONE ×2 (16:07→17:20)
[2024-07-25 16:21] LABS: BASOPHILS ABSOLUTE AUTO 0.05 K/uL (0.00-0.10); BASOPHILS PERCENT AUTO 0.4 % (0.1-1.3); EOSINOPHILS ABSOLUTE AUTO 0.09 K/uL (0.00-0.40); EOSINOPHILS PERCENT AUTO 0.8 % (0.0-5.4); HEMATOCRIT 33.1 % (34.3-46.0); HEMOGLOBIN 11.4 g/dL (11.2-15.5); IMMATURE GRAN ABSOLUTE AUTO 0.15 K/uL (0.00-0.23); IMMATURE GRAN PERCENT AUTO 1.3 % (0.0-0.7); MEAN CORPUSCULAR HEMOGLOBIN 23.8 pg (31.6-35.5); MEAN CORPUSCULAR HGB CONC 34.4 g/dL (31.6-35.5); MEAN CORPUSCULAR VOLUME 69.2 fL (81.4-99.0); MONOCYTES ABSOLUTE AUTO 1.01 K/uL (0.20-0.90); NEUTROPHILS ABSOLUTE AUTO 8.18 K/uL (1.0-7.6); NEUTROPHILS PERCENT AUTO 72.5 % (40.0-78.1); PLATELET COUNT,PLT 389 K/uL (130-375); RED BLOOD CELL COUNT 4.78 M/uL (3.77-5.24); WHITE BLOOD CELL COUNT,WBC 11.3 K/uL (3.2-11.0)
[2024-07-25 16:42] LABS: A/G RATIO 1.1 (1.2-2.2); ALANINE AMINOTRANSFERASE,ALT 43 U/L (12-78); ALBUMIN 4.3 g/dL (3.4-5.0); ALKALINE PHOSPHATASE 87 U/L (46-116); ASPARTATE AMNIOTRANSFERASE,AST 88 U/L (15-37); BILIRUBIN TOTAL 0.4 mg/dL (0.2-1.0); BLOOD UREA NITROGEN,BUN 9 mg/dL (7-18); C-REACTIVE PROTEIN 0.88 mg/dL (<0.50); CALCIUM 9.5 mg/dL (8.5-10.1); CARBON DIOXIDE,CO2 19 mmol/L (21-32); CHLORIDE,CL 90 mmol/L (100-108); CREATININE 0.8 mg/dL (0.6-1.0); EST CRCL DRUG DOSING (CG) 74.26 mL/min; ESTIMATED GFR 91 mL/min (>60); GLUCOSE RANDOM 70 mg/dL (74-106); POTASSIUM,K 3.1 mmol/L (3.6-5.2); PROTEIN TOTAL,TP 8.1 g/dL (6.4-8.2); SODIUM,NA 134 mmol/L (140-148)
[2024-07-25 16:47] LABS: ANION GAP 28.1 mmol/L (5.0-14.0)
[2024-07-25 18:59] LABS: LYME AB IgG Negative (Negative)
[2024-07-25 19:00] LABS: LYME AB IgM Negative (Negative)
[2024-07-28 10:58] LABS: ANAPLASMA PHAGOCYTOPHILUM PCR Not Detected; BABESIA MICROTI BY PCR Not Detected; BABESIA SPECIES BY PCR Not Detected; EHRLICHIA CHAFFEENSIS BY PCR Not Detected; EHRLICHIA EWINGII/CANIS BY PCR Not Detected; EHRLICHIA MURIS-LIKE BY PCR Not Detected
== END 2024-07-25 18:25 | disposition home or self-care (01) ==
LOC: JP.ED 14:29
DX: E86.0 Dehydration (principal); E87.6 Hypokalemia; F10.10 Alcohol abuse, uncomplicated; F17.210 Nicotine dependence, cigarettes, uncomplicated; Z79.899 Other long term (current) drug therapy; Z88.8 Allergy status to other drugs, medicaments and biological substances; Z88.5 Allergy status to narcotic agent
CPT/HCPCS: 36415; 80053; 80307; 85025; 86140; 86618; 87468; 87469; 87484; 87798; 96361; 96374; 99284; J2405; J7030